=== PATIENT | female | born 1955 | race Caucasian/White ===

== ENCOUNTER 2023-10-01 08:53 | Observation (INO) | payer MEDICARE ==
[2023-09-25 15:30] LABS: BASOPHILS # (AUTO) 0.1 X10'3 (0-0.2); BASOPHILS % (AUTO) 0.8 % (0-1); EOSINOPHILS # (AUTO) 0.1 X10'3 (0-0.9); EOSINOPHILS % (AUTO) 1.5 % (0-6); LYMPHOCYTES # (AUTO) 1.5 X10'3 (1.1-4.8); LYMPHOCYTES % (AUTO) 20.5 % (21-51); MEAN CORPUSCULAR HEMOGLOBIN 32.5 PG (27.0-31.0); MEAN CORPUSCULAR HGB CONC 33.9 g/dL (33.0-36.5); MEAN CORPUSCULAR VOLUME 95.6 FL (78-98); MONOCYTES # (AUTO) 0.7 X10'3 (0-0.9); MONOCYTES % (AUTO) 9.8 % (2-12); NEUTROPHILS % (AUTO) 67.4 % (42-75); PRE OP HEMOGLOBIN 14.3 g/dL (12.0-16.0); PRE OP PLATELET COUNT 253 X10'3 (140-440); PRE OP WHITE BLOOD COUNT 7.5 10'3 (4.8-10.8); RED CELL DISTRIBUTION WIDTH 13.5 % (11.5-14.5)
[2023-09-25 15:32] LABS: ALBUMIN 3.7 G/DL (3.4-5.0); ALBUMIN/GLOBULIN RATIO 1.1 (1.1-1.5); ALKALINE PHOSPHATASE 127 IU/L (46-116); BLOOD UREA NITROGEN 13 MG/DL (7-18); BUN/CREATININE RATIO 15.9 (10.0-20.0); CALCIUM 8.9 MG/DL (8.5-10.1); CHLORIDE 100 MMOL/L (99-107); CREATININE 0.82 MG/DL (0.40-0.90); PRE OP ALT 26 U/L (30-65); PRE OP ANION GAP 6 (8-16); PRE OP AST 29 U/L (10-37); PRE OP BILIRUB, TOTAL 0.5 MG/DL (0.0-1.0); PRE OP GLUCOSE 118 MG/DL (70-104); PRE OP POTASSIUM 3.7 MMOL/L (3.4-5.1); PRE OP SODIUM 133 MMOL/L (135-145); TOTAL CARBON DIOXIDE 26.9 MMOL/L (24-32); TOTAL PROTEIN 7.1 G/DL (6.4-8.2); eGFR 69 ML/MIN
[2023-10-01] VITALS (33 sets, daily range): BP systolic 103–138; BP diastolic 51–86; PULSE 73–97; RESP 10–20; TEMP 98–98.8; O2SAT 92–99
[~2023-10-01] VITALS: Ht 165.1 cm; Wt 48.0 kg
[2023-10-01] MEDS: ringers solution, lacted 1,000 ML IV SCH ×4 (05:00→20:50)
[~2023-10-01 08:53] MED LIST: AMLO5TAB16 PO; DOCUMENT DATE & TIME OF BETA-BLOCKER PO ONE; LEVO100T9 PO; METO-411 PO; cefazolin 2gm/D5W 100mL 100 ML IV ONE; famotidine 20mg tablet PO ONE
[2023-10-01] MEDS ORDERED: BUPIVACAINE liposomal/PF 13.3 MG/ML vial IM ONE (10:12)
[2023-10-01] MEDS ORDERED: BUPIVAcaine/PF 2.5mg/ml (0.25%) 10ml vial ONE (10:12)
[2023-10-01] MEDS ORDERED: methylene blue (5mg/ml) 50mg/10ml ampul IV ONE (10:16)
[2023-10-01] MEDS ORDERED: BUPIVAcaine/PF 7.5mg/ml (0.75%) 10ml vial ONE (10:16)
[2023-10-01] MEDS ORDERED: fentaNYL/PF 50MCG/1 ML 2ML syringe ONE ×2 (10:17→11:05)
[2023-10-01] MEDS ORDERED: midazolam 1 mg/ML 2ml injection ONE (10:18)
[2023-10-01] MEDS ORDERED: sevoflurane 250ml liquid IH ONE (10:26)
[2023-10-01] MEDS ORDERED: ondansetron/PF 4mg/2ml inj IV PRN ×2 (11:00→12:50)
[2023-10-01] MEDS ORDERED: HYDROmorphone/PF 0.2 MG/ML SYRINGE IV PRN ×2 (11:00)
[2023-10-01] MEDS ORDERED: ringers solution, lacted 1,000 ML IV SCH (11:00)
[2023-10-01] MEDS ORDERED: dexamethasone sod phosphate 4mg/ml inj. ONE (11:14)
[2023-10-01] MEDS ORDERED: propofol inj 20 ML IV ONE (11:14)
[2023-10-01] MEDS ORDERED: ondansetron/PF 4mg/2ml inj ONE (11:14)
[2023-10-01] MEDS ORDERED: acetaminophen 1,000mg/100ml IV 100 ML IV ONE (11:14)
[2023-10-01] MEDS ORDERED: BUPIVAcaine/PF 2.5 mg/ml (0.25%) 30ml vial IJ ONE (12:16)
[2023-10-01] MEDS ORDERED: morphine 2 MG/ML inj. syringe IV PRN (12:50)
[2023-10-01] MEDS ORDERED: ePHEDrine 50MG/ML INJ. ONE (12:58)
[2023-10-01] MEDS ORDERED: HYDROcodone/acetaminophen 5mg/325mg tablet PO STA (13:00)
[2023-10-01] MEDS: morphine 2 MG/ML inj. syringe IV PRN ×2 (13:04→20:15)
[2023-10-01] MEDS: ceFAZolin 1GM/D5W- ADD-VANTAGE 50 ML IV SCH ×2 (18:41→23:58)
[2023-10-01] MEDS: HYDROcodone/acetaminophen 5mg/325mg tablet PO PRN (20:32)
[2023-10-02 02:00] VITALS: BP 106/70; PULSE 98; RESP 16; TEMP 97.5; O2SAT 94; O2SAT 97
[2023-10-02] MEDS: ringers solution, lacted 1,000 ML IV SCH (04:50)
[2023-10-02 06:38] VITALS: BP 113/64; PULSE 82; RESP 16; TEMP 98; O2SAT 96
[2023-10-02] MEDS ORDERED: levoTHYROXINE 100mcg tablet PO SCH (07:00)
[2023-10-02 08:00] VITALS: RESP 16; O2SAT 96
[2023-10-02] MEDS ORDERED: amLODIPine 5mg tablet PO SCH (08:00)
[2023-10-02] MEDS ORDERED: metoprolol succinate 25mg (24-HOUR) SR. Tablet PO SCH (08:00)
[2023-10-02 08:10] VITALS: BP_SYST 113; PULSE 82
[2023-10-02] MEDS: ceFAZolin 1GM/D5W- ADD-VANTAGE 50 ML IV SCH (08:11)
[2023-10-02 08:31] VITALS: RESP 18
[2023-10-02] MEDS: HYDROcodone/acetaminophen 5mg/325mg tablet PO PRN (08:31)
== END 2023-10-02 11:30 | disposition home or self-care (01) ==
LOC: PRE-OP 08:53 → ORTHO 4S 13:03
PROVIDERS: ADMIT Surgery; ATTEND Surgery
DX: C50.911 Malignant neoplasm of unspecified site of right female breast (principal); I10 Essential (primary) hypertension; G43.909 Migraine, unspecified, not intractable, without status migrainosus; E03.9 Hypothyroidism, unspecified; Z79.899 Other long term (current) drug therapy
CPT/HCPCS: 19303; 36415; 38500; 80053; 82948; 85025; 93005; 96365; 96366; 96375; C9290; G0378; J0131; J0690; J1100; J2250; J2270; J2405; J2704; J3010; J3490; J7120; Q9968; 88307; 88342; A4215; A4618; A6213; A6253; A6258; A6449; A7000; C9250